=== PATIENT | male | born 2000 | race Two or more races ===

== ENCOUNTER → 2020-07-19 | Outpatient (CLI) | payer SELFPAY | LOC: M LABSMTC 12:05 | PROVIDERS: ATTEND Pediatrics | DX: Z20.828 Contact with and (suspected) exposure to other viral communicable diseases (principal) ==

== ENCOUNTER 2020-10-14 12:12 | Day surgery (SDC) | payer OTHER ==
[~2020-10-14] VITALS: Ht 167.6 cm; Wt 77.0 kg
[~2020-10-14 12:12] MED LIST: CelecoXIB (CeleBREX) 100 MG CAP PO ONE; LR 1,000 ML IV ONE; LR 1,000 ML IV SCH; VITA500C24 PO; ceFAZolin SOD 2 GM in IV 1 EA IV ONE
[2020-10-14] MEDS ORDERED: propofoL 200 MG/20 ML VIAL As Ordered ONE ×2 (12:29→20:55)
[2020-10-14] MEDS ORDERED: ROCURONIUM BROMIDE 50 MG/5 ML VIAL As Ordered ONE ×2 (12:29→20:35)
[2020-10-14] MEDS ORDERED: LIDOCAINE 2% 100MG/5ML SDV (FOR ANES.) As Ordered ONE (12:29)
[2020-10-14] MEDS ORDERED: MIDAZOLAM INJ 2MG/2ML VIAL (J2250 PER 1MG) As Ordered ONE (12:30)
[2020-10-14] MEDS ORDERED: fentaNYL 250 MCG/5 ML INJECTION (J3010) As Ordered ONE (12:30)
[2020-10-14] MEDS ORDERED: BUPIVACAINE HCL 0.25% 30ML VIAL As Ordered ONE (19:11)
[2020-10-14] MEDS ORDERED: LIDOCAINE 1% SDV 30ML VIAL As Ordered ONE (19:11)
[2020-10-14] MEDS ORDERED: dexameTHASONE 4 MG/ML 1ML VIAL (J1100 PER 1MG) As Ordered ONE (19:12)
[2020-10-14] MEDS ORDERED: ONDANSETRON 4MG/2ML VIAL As Ordered ONE (19:12)
[2020-10-14] MEDS ORDERED: ACETAMINOPHEN 1000MG 100ML IV BTL (OFIRMEV) (J0131 PER 10MG) As Ordered ONE (20:37)
[2020-10-14] MEDS ORDERED: SUGAMMADEX SODIUM 500 MG/5 ML VIAL (BRIDION) As Ordered ONE (20:38)
[2020-10-14] MEDS ORDERED: KETOROLAC 60MG 2ML VIAL As Ordered ONE (20:38)
[2020-10-14] MEDS ORDERED: HYDROMORPHONE HCL 0.5 MG/ 0.5 ML SYRINGE (J1170 PER 1) IV PRN (21:40)
[2020-10-14] MEDS ORDERED: fentaNYL 100 MCG/2 ML INJECTION (J3010) IV PRN (21:40)
[2020-10-14] MEDS ORDERED: ONDANSETRON 4MG/2ML VIAL IV PRN ×2 (21:40→22:40)
[2020-10-14] MEDS ORDERED: oxyCODONE 5MG TAB PO PRN (21:40)
[2020-10-14] MEDS ORDERED: LR 1,000 ML IV SCH (21:40)
[2020-10-14 22:15] VITALS: BP 146/80
[2020-10-14] MEDS ORDERED: NORCO, ANEXSIA 5/325MG TABLET (HYDROcodone/ACETAMINOPHEN) PO PRN (22:40)
[2020-10-15] MEDS ORDERED: KETOROLAC 30 MG/ML 1ML VIAL IV PRN (03:00)
== END 2020-10-14 22:15 | disposition home or self-care (01) ==
LOC: M SDC 12:12
PROVIDERS: ATTEND Surgery
DX: K40.90 Unilateral inguinal hernia, without obstruction or gangrene, not specified as recurrent (principal)
CPT/HCPCS: 49650; C1781; J0131; J0690; J1100; J1885; J2250; J2405; J3010; S2900

== ENCOUNTER 2022-07-13 17:04 | Emergency (ER) | payer OTHER ==
[~2022-07-13] VITALS: Ht 167.6 cm; Wt 75.6 kg
[~2022-07-13 17:04] MED LIST changes: -CelecoXIB (CeleBREX) 100 MG CAP PO ONE; -LR 1,000 ML IV ONE; -LR 1,000 ML IV SCH; -ceFAZolin SOD 2 GM in IV 1 EA IV ONE
[2022-07-13 17:14] VITALS: BP 140/79
== END 2022-07-13 22:12 | disposition home or self-care (01) ==
LOC: M ED 17:04
DX: U07.1 COVID-19 (principal)